=== PATIENT | male | born 1975 ===

== ENCOUNTER 2016-11-26 19:38 | Emergency (ER) | payer OTHER ==
[2016-11-26] MEDS ORDERED: PROPARACAINE 0.5% 15 ML OPHT DROP OP ONE (19:41)
[2016-11-26 19:54] VITALS: BP 134/85; PULSE 69; RESP 16; TEMP 97.5; O2SAT 94
--- NOTE | 2016-11-26 20:15 | UCPHY ---
H & P Time Seen by Provider: 11/26/16 19:55 Patient Type: New HPI/ROS: CHIEF COMPLAINT: [poked in the eye ] HISTORY OF PRESENT ILLNESS: [40 yo good health. Does not wear contacts. His young child was sitting on his lap and he sustained a direct blow by the crayon that she was using which greater across his eye. This just happened prior to admission. He did flush his eye out. Did not see anything come out.] REVIEW OF SYSTEMS: Denies other injuries. He states that his vision was before when he was tearing some much but now that the Ophthetic was placed in there he can't see much better as he has no longer tearing and the pain is relieved. He points out the fact that it was not really much pain as a discomfort. Smoking Status: Former smoker Physical Exam: General Appearance: Alert, no distress. Afebrile. Normal phonation. No respiratory distress. Not truly photophobic. Eyes: Pupils equal and round no pallor or injection. No icterus. Lids without changes. No ptosis. [Mild] erythema of bulbar and eyelid conjunctival surface without flare or limbal predominance. No spasm or pain with light. No preauricular nodes. Slit Lamp: Deep, clear quiet anterior chamber without cells or flare. No hyphema or hypopion or ulcer Flourescein: There is a full-thickness abrasion on the eye which is in the shape of a sail sign, triangular, extending from 11 o'clock toward 6 o'clock as well as toward 8 o'clock. It does not involve the central axis as long as the pupil is small. There are no lacerations. I am unable to find any foreign bodies. Skin: Warm and dry, no rashes. Psych: Calm. Constitutional: Initial Vital Signs Temperature (C) 36.4 C 11/26/16 19:41 Heart Rate 69 11/26/16 19:41 Respiratory Rate 16 11/26/16 19:41 Blood Pressure 134/85 H 11/26/16 19:41 O2 Sat (%) 94 11/26/16 19:41 O2 Delivery Mode Room Air Allergies/Adverse Reactions: No Known Allergies Allergy (Verified 11/26/16 19:55) Home Medications: Medication Instructions Recorded Hydrocodone/APAP 5/325 [[place] 1 - 2 tab PO Q6H PRN #6 tab 11/26/16 5/325 (*)] Medical Decision Making - Data Points Medications Given: Discontinued Medications Acetaminophen/Hydrocodone Bitart ([place] 5/325mg Prepack#6) 1 btl TAKEHOME EDNOW ONE Stop: 11/26/16 20:20 Last Admin: 11/26/16 20:24 Dose: 1 btl Erythromycin (Erythromycin 0.5%) 1 yasmine LEFTEYE ONCE [place] Stop: 12/26/16 20:29 Last Admin: 11/26/16 20:26 Dose: 1 yasmine Proparacaine HCl (Alcaine 0.5%) 2 drops OP EDNOW ONE Stop: 11/26/16 19:42 Last Admin: 11/26/16 19:52 Dose: 2 drops Departure - Departure Disposition: Home, Routine, Self-Care Clinical Impression: Corneal abrasion, left Qualifiers: Qualifier Code: (S05.02XA) Injury of conjunctiva and corneal abrasion without foreign body, left eye, initial encounter Condition: Good Instructions: Hydrocodone/Acetaminophen (By mouth), Erythromycin (Into the eye) , Corneal Abrasion (ED) Additional Instructions: Do not go outdoors as he will be so light sensitive Cool compresses might help with the pain Ibuprofen 600 mg 3 times daily will help Take the [place] when it is particularly bad such as bedtime Follow up with Ophthalmology Referrals: NONE *PRIMARY CARE P,. [Primary Care Provider] - As per Instructions Rafa Paulson MD [Medical Doctor] - As per Instructions Prescriptions: Hydrocodone/APAP 5/325 [[place] 5/325 (*)] 1 - 2 tab PO Q6H PRN #6 tab PRN Reason: moderate pain - PQRS PQRS Measurement: Not applicable
[2016-11-26] MEDS ORDERED: HYDROCOD/APAP 5/325 PREPACK#6 BTL TAKEHOME ONE (20:19)
[2016-11-26] MEDS ORDERED: ERYTHROMYCIN 0.5% 1 GM OPHT.OINT LEFTEYE SCH (20:30)
== END 2016-11-26 20:35 | disposition home or self-care (01) ==
LOC: CED 19:38
DX: S05.02XA Injury of conjunctiva and corneal abrasion without foreign body, left eye, initial encounter (principal); W50.0XXA Accidental hit or strike by another person, initial encounter; Y92.019 Unspecified place in single-family (private) house as the place of occurrence of the external cause; Z87.891 Personal history of nicotine dependence
CPT/HCPCS: 99202-PO; G0463-PO